=== PATIENT | female | born 1955 | race Caucasian/White ===

== ENCOUNTER 2020-01-02 | Inpatient (IN) | payer OTHER ==
[2020-01-02] VITALS (13 sets, daily range): BP systolic 94–148; BP diastolic 54–84
--- NOTE | 2020-01-02 11:36 | NUR ---
PT TO ROOM WITH SLOW GAIT
--- NOTE | 2020-01-02 11:38 | NUR ---
PT IMMEDIATELY TO CT FROM [facility]. PT BECAME VERY ANXIOUS IN CT AND SCREAMING "I CANT DO IT , I AM TOO DIZZY". WORKED TROUGH WITH PT AND CT COMPLETED.
--- NOTE | 2020-01-02 11:38 | NUR ---
PATIENT HAD SUDDEN ONSET OF DIZZINESS WHERE SHE FEELS LIKE SHE IS SPINNGING. NAUSEA AND VOMITING. PATIENT STANDS AND HAS TRUNKAL ATAXIA. LKW 1000 PATIENT HAS NO DRIFTS, VISUAL CHANGES IS ABLE TO FOLLOW ALL COMMANDS. NO WEAKNESS, ASPHASIA OR DYSARTHRIA. MD NOTIFIED OF PATIENT STATUS AND STROKE ALERT CALLED.
--- NOTE | 2020-01-02 12:05 | NUR ---
PATIENT VOMITING MD NOTIFIED AND ORDERS RECIEVED. PATIENT REFUSING TO COOPERATE WITH STAFF FOR NIHSS EXAM. PATIENT REFUSING TO ROLL ON HER BACK. NOTIFIED
--- NOTE | 2020-01-02 12:35 | NUR ---
PATIENT CONTINUED VOMITING MD NOTIFIED AND ORDERS RECIEVED
[2020-01-02 12:39] LABS: HEMATOCRIT 42.3 % (37.0-47.0); HEMOGLOBIN 13.9 g/dl (12.0-16.0); IMMATURE GRANULOCYTES 0.4 % (0.0-5.0); MEAN CELL VOLUME 86.2 fL CALC (80.0-100.0); MEAN CORPUSCULAR HGB 28.3 pG CALC (26.0-32.0); MEAN CORPUSCULAR HGB CONC 32.9 g/L CALC (32.0-36.0); NEUT# 3.21 thou/uL (2.00-7.15); RED BLOOD COUNT 4.91 mill/uL (4.20-5.60); RED CELL DISTRI WIDTH 13.4 % (11.5-15.5)
[2020-01-02 12:43] LABS: GFR > 60 ML/MIN (>=60 (CALC)); GFR FOR AFR.AMER. > 60 ML/MIN (>=60 (CALC))
[2020-01-02 13:05] LABS: INTERNATIONAL NORMALIZED RATIO 0.9 RATIO (0.7-1.3); PROTHROMBIN TIME 9.5 SECONDS (9.0-12.5)
--- NOTE | 2020-01-02 13:30 | NUR ---
NAUSEA AND VOMITING DECREASED AND PATIENT STATES STILL DIZZY BUT NOT BAD. PATIENT COOPERATIVE WITH STAFF AND IS FOLLOW ALL COMMANDS. NOTIFIED
--- NOTE | 2020-01-02 14:30 | NUR ---
PATIENT IN MRI
[2020-01-02] MEDS ORDERED: ZOCOR10 MG PO (15:22)
[2020-01-02] MEDS ORDERED: LEVOTHYROXIN137 MCG PO (15:23)
[2020-01-02] MEDS ORDERED: FLUOXETINE20 MG PO (15:24)
[2020-01-02] MEDS ORDERED: ASPIRIN 81 LOW81 MG PO (15:26)
--- NOTE | 2020-01-02 15:29 | NUR ---
REPORT CALLED TO ICU
--- NOTE | 2020-01-02 15:44 | NUR ---
[facility]INT TRANSPORTED TO ICU NIHSS DONE AT BEDSIDE WITH RICH YING NIHSS STILL REMAINS 0
--- NOTE | 2020-01-02 15:45 | NUR ---
PT TO ICU BED 2 VIA STRETCHER ACCOMPANIED BY RN.PT ABLE TO TRANSFER TO BED BY SELF. PT IS ALERT AND ORIENTED X3. NIH COMPLETED WITH PRINTS AND DRAWINGS CURATOR. ADMISSION ASSESSMENT COMPLETED AT THIS TIME. IV PATENT X1. CALL LIGHT IN REACH. WILL CONTINUE TO MONITOR.
--- NOTE | 2020-01-02 16:05 | NUR ---
DR JOHN NOTIFIED FOR ORDERS FOR STROKE PROTOCOL PER TRAIN OPERATIONS SUPERVISOR.
--- NOTE | 2020-01-02 17:07 | NUR ---
DR JOHN NOTIFIED OF MRI FINDINGS
--- NOTE | 2020-01-02 17:22 | NUR ---
CALLED FOR UPDATE ON AND MRI RESULTS. UPDATE PROVIDED.
--- NOTE | 2020-01-02 17:42 | NUR ---
LAB AT BEDSIDE AT THIS TIME.
--- NOTE | 2020-01-02 17:54 | NUR ---
RICH OCHOA CALLED FOR CLARIFICATION OF MRI/MRA RESULTS.
[2020-01-02 17:57] LABS: HEMATOCRIT 41.3 % (37.0-47.0); HEMOGLOBIN 13.4 g/dl (12.0-16.0); IMMATURE GRANULOCYTES 0.3 % (0.0-5.0); MEAN CELL VOLUME 86.4 fL CALC (80.0-100.0); MEAN CORPUSCULAR HGB CONC 32.4 g/L CALC (32.0-36.0); NEUT# 5.52 thou/uL (2.00-7.15); RED BLOOD COUNT 4.78 mill/uL (4.20-5.60); RED CELL DISTRI WIDTH 13.3 % (11.5-15.5)
--- NOTE | 2020-01-02 18:00 | NUR ---
GABRIELA VILLANUEVA SPOKE WITH DR JOHN. ORDERS RECEIVED TO TRANSFER PATIENT TO [facility]
--- NOTE | 2020-01-02 18:05 | NUR ---
H TRANSFER CALLED. TRANSFER INITIATED
[2020-01-02 18:07] LABS: ETHYL ALCOHOL 0 mg/dl (0-30)
[2020-01-02 18:11] LABS: ALBUMIN 4.6 g/dL (3.2-5.0); ALKALINE PHOSPHATASE 83 u/l (38-126); ANION GAP 12 (6-22 (CALC)); BILIRUBIN, TOTAL 0.4 mg/dL (0.0-1.4); BUN 13 mg/dL (8-23); BUN/CREATININE RATIO 19 (12-20 (CALC)); C-REACTIVE PROTEIN < 0.5 mg/dL (0-0.9); CALCULATED LDLCHOLESTEROL 86 mg/dL (62-129 (CALC)); CARBON DIOXIDE 27 mmol/l (22-30); CHLORIDE 105 mmol/l (95-108); CHOLESTEROL HDL RATIO 2.1 (<4.4 (CALC)); CREATININE 0.7 mg/dL (0.5-1.0); GFR > 60 ML/MIN (>=60 (CALC)); GFR FOR AFR.AMER. > 60 ML/MIN (>=60 (CALC)); HDL CHOLESTEROL 87 mg/dL (>=40); POTASSIUM 4.6 mmol/l (3.5-5.1); SGOT/AST 23 u/l (9-36); SODIUM 139 mmol/l (137-146); TOTAL CHOLESTEROL 183 mg/dl (0-199); TOTAL PROTEIN 7.8 g/dL (6.3-8.2); TOTAL TRIGLYCERIDES 51 mg/dl (30-149); VLDL CHOLESTROL 10 mg/dl (1-41 (CALC))
[2020-01-02 18:18] LABS: MYOGLOBIN 37 ng/mL (0 - 62)
--- NOTE | 2020-01-02 18:22 | NUR ---
CONSENT OBTAINED FROM PATIENT FOR TRANSFER
--- NOTE | 2020-01-02 18:23 | NUR ---
ACCEPTING PHYSICIAN LYDIA SHIELDS. PER ZAIRA AT [facility] AWAITING BED ASSIGNMENT. PER DR JOHN THE PATIENT CAN GO VIA [facility]
--- NOTE | 2020-01-02 18:28 | NUR ---
GABRIELA VILLANUEVA ON PHONE WITH [facility] ZA[facility]. AWAITING BED ASSIGNMENT
--- NOTE | 2020-01-02 18:46 | NUR ---
ZAIRA FROM [facility] CALLED WITH BED ASSIGNMENT [phone] REPORT TO BE CALLED TO [phone]
--- NOTE | 2020-01-02 18:53 | NUR ---
REPORT CALLED TO [facility] [phone].
--- NOTE | 2020-01-02 19:19 | NUR ---
[facility] AT THE BEDSIDE. REPORT GIVEN BY GABRIELA VILLANUEVA TO [facility].
--- NOTE | 2020-01-02 19:30 | NUR ---
PATIENT LEFT WITH MOSES SILVA AT 193
== END 2020-01-02 19:30 | disposition short-term general hospital (02) | DRG 66 ==
PROVIDERS: Family Medicine; ADMIT Internal Medicine
DX: I63.89 Other cerebral infarction (principal); R29.700 NIHSS score 0; R20.0 Anesthesia of skin; E03.9 Hypothyroidism, unspecified
CPT/HCPCS: A9579; J2060; Q9967